=== PATIENT | male | born 1985 | race Caucasian/White ===

== ENCOUNTER 2022-08-24 03:30 | Emergency (ER) | payer SELFPAY ==
[~2022-08-24] VITALS: Ht 172.7 cm; Wt 104.3 kg
--- NOTE | 2022-08-24 03:30 | NUR ---
PT [facility], PREBOOK. TAKEN TO CHAIR
--- NOTE | 2022-08-24 03:34 | NUR ---
Dr. Pineda examining patient,
[2022-08-24 03:39] VITALS: BP 111/81
[2022-08-24 03:46] VITALS: BP 111/67
--- NOTE | 2022-08-24 03:46 | NUR ---
Patient D/C to custody.
== END 2022-08-24 03:46 ==
LOC: MED 03:30
DX: Z00.00 Encounter for general adult medical examination without abnormal findings (principal); V89.2XXA Person injured in unspecified motor-vehicle accident, traffic, initial encounter; Y93.89 Activity, other specified; Y92.410 Unspecified street and highway as the place of occurrence of the external cause; Y99.8 Other external cause status
CPT/HCPCS: 99283